=== PATIENT | male | born 1985 | race African-American/Black ===

== ENCOUNTER → 2023-03-02 | Outpatient (CLI) | payer OTHER ==
[~2023-03-02] MED LIST: ACYC400 PO; ALBU90OI INH; ATOM40 PO; ELIQUIS5 M2 PO; MELO7.5 PO
[2023-03-02 13:12] LABS: BASOPHILS ABSOLUTE AUTO 0.01 K/mm3 (0.00-0.23); BASOPHILS PERCENT AUTO 0 % (0-2); EOSINOPHILS ABSOLUTE AUTO 0.05 K/mm3 (0.00-0.68); EOSINOPHILS PERCENT AUTO 1 % (0-6); Hemoglobin 11.1 g/dL (13.5-17.5); IMMATURE GRAN ABSOLUTE AUTO 0.02 K/mm3 (0.00-0.10); IMMATURE GRAN PERCENT AUTO 0 % (0-1); LYMPHOCYTES ABSOLUTE AUTO 1.37 K/mm3 (0.84-5.20); LYMPHOCYTES PERCENT AUTO 25 % (21-46); MONOCYTES ABSOLUTE AUTO 0.27 K/mm3 (0.16-1.47); MONOCYTES PERCENT AUTO 5 % (4-13); Mean Corpuscular HGB 23.2 pg (26.0-34.0); Mean Corpuscular HGB Conc 31.7 g/dL (31.5-36.5); Mean Corpuscular Volume 73 fL (80-100); NEUTROPHILS ABSOLUTE AUTO 3.84 K/mm3 (1.96-9.15); NEUTROPHILS PERCENT AUTO 69 % (41-73); Platelet Count 158 K/mm3 (150-400); RDW Coefficient Variation 18.6 % (11.7-14.2); RDW Standard Deviation 45.8 fL (35.1-46.3); Red Blood Cell Count 4.79 M/mm3 (4.30-5.90); White Blood Cell Count 5.56 K/mm3 (4.00-11.30)
[2023-03-02 13:35] LABS: Albumin, Blood 2.9 g/dL (3.4-5.0); Albumin/Globulin Ratio 0.5 (0.8-1.8); Bilirubin, Total 0.5 mg/dL (0.1-1.0); Bun/Creatinine Ratio 14.1 (12.0-20.0); Calcium, Blood 8.4 mg/dL (8.5-10.1); Creatinine, Blood 0.85 mg/dL (0.60-1.20); Globulin, Blood 5.9 g/dL (2.2-4.0); Potassium, Blood 3.9 mmol/L (3.5-5.5); Total Protein, Blood 8.8 g/dL (6.4-8.2)
== END | disposition home or self-care (01) ==
LOC: LAB 12:15 → LAB SHORT 12:15
PROVIDERS: Physician Assistant
DX: R55 Syncope and collapse (principal); R74.01 Elevation of levels of liver transaminase levels
CPT/HCPCS: 80053; 83690; 85025; 85379

== ENCOUNTER 2023-03-07 09:26 | Emergency (ER) | payer OTHER ==
[~2023-03-07] VITALS: Ht 182.9 cm; Wt 112.0 kg
[2023-03-07 11:07] LABS: Hematocrit 33.4 % (37.0-53.0); Hemoglobin 10.7 g/dL (13.5-17.5); Mean Corpuscular HGB 23.3 pg (26.0-34.0); Mean Corpuscular Volume 73 fL (80-100); Platelet Count 151 K/mm3 (150-400); RDW Coefficient Variation 18.9 % (11.7-14.2); RDW Standard Deviation 44.7 fL (35.1-46.3); White Blood Cell Count 4.31 K/mm3 (4.00-11.30)
[2023-03-07 11:47] LABS: BAND PERCENT MAN 1 % (0-8); BASOPHILS PERCENT MAN 0 % (0-2); EOSINOPHILS ABSOLUTE MAN 0.04 K/mm3 (0.00-0.68); EOSINOPHILS PERCENT MAN 1 % (0-6); LYMPHOCYTES % ATYPICAL MANUAL 1 % (0-0); LYMPHOCYTES ABSOLUTE MAN 1.07 K/mm3 (0.84-5.20); LYMPHOCYTES PERCENT MAN 24 % (21-46); MONOCYTES ABSOLUTE MAN 0.12 K/mm3 (0.16-1.47); MONOCYTES PERCENT MAN 3 % (4-13); NEUTROPHILS ABSOLUTE MAN 3.06 K/mm3 (1.96-9.15); SEG NEUTROPHILS PERCENT MAN 70 % (41-73); TOTAL CELLS COUNTED 100
[2023-03-07 14:18] LABS: Magnesium, Blood 2.1 mg/dL (1.6-2.4)
[2023-03-07 14:19] LABS: Albumin, Blood 2.6 g/dL (3.4-5.0); Albumin/Globulin Ratio 0.4 (0.8-1.8); Bilirubin, Total 0.4 mg/dL (0.1-1.0); Bun/Creatinine Ratio 16.5 (12.0-20.0); Calcium, Blood 8.2 mg/dL (8.5-10.1); Creatinine, Blood 0.73 mg/dL (0.60-1.20); Globulin, Blood 5.9 g/dL (2.2-4.0); Potassium, Blood 5.1 mmol/L (3.5-5.5); Total Protein, Blood 8.5 g/dL (6.4-8.2)
[2023-03-07] MEDS ORDERED: MELO7.5 PO (14:48)
[2023-03-07] MEDS ORDERED: ACYC400 PO (14:49)
[2023-03-07] MEDS ORDERED: ATOM40 PO (14:49)
[2023-03-07] MEDS ORDERED: ELIQUIS5 M2 PO ×2 (14:49→18:30)
[2023-03-07] MEDS ORDERED: ALBU90OI INH (14:50)
[2023-03-07 17:51] VITALS: BP 140/65
== END 2023-03-07 18:30 | disposition home or self-care (01) ==
LOC: ER 09:26
PROVIDERS: Physician Assistant
DX: R55 Syncope and collapse (principal); D68.9 Coagulation defect, unspecified; R59.0 Localized enlarged lymph nodes; R63.4 Abnormal weight loss; S80.01XA Contusion of right knee, initial encounter; R10.9 Unspecified abdominal pain; E88.09 Other disorders of plasma-protein metabolism, not elsewhere classified; Z86.718 Personal history of other venous thrombosis and embolism; Z79.01 Long term (current) use of anticoagulants; F17.210 Nicotine dependence, cigarettes, uncomplicated; Z79.899 Other long term (current) drug therapy; W18.39XA Other fall on same level, initial encounter
CPT/HCPCS: 71260; 73562-LT; 74177; 80053; 83735; 85025; 93005; 93010; 96360; 96361; 99285-25; A9270; J7030; Q9967

== ENCOUNTER 2023-04-11 10:13 | Inpatient (IN) | payer OTHER ==
[~2023-04-11] VITALS: Ht 185.4 cm; Wt 114.1 kg
[2023-04-11 11:18] LABS: BASOPHILS ABSOLUTE AUTO 0.01 K/mm3 (0.00-0.23); BASOPHILS PERCENT AUTO 0 % (0-2); EOSINOPHILS ABSOLUTE AUTO 0.04 K/mm3 (0.00-0.68); EOSINOPHILS PERCENT AUTO 1 % (0-6); Hematocrit 23.6 % (37.0-53.0); Hemoglobin 7.7 g/dL (13.5-17.5); Mean Corpuscular HGB 23.2 pg (26.0-34.0); Mean Corpuscular HGB Conc 32.6 g/dL (31.5-36.5); Mean Corpuscular Volume 71 fL (80-100); Platelet Count 198 K/mm3 (150-400); RDW Coefficient Variation 19.8 % (11.7-14.2); RDW Standard Deviation 47.5 fL (35.1-46.3); Red Blood Cell Count 3.32 M/mm3 (4.30-5.90); White Blood Cell Count 5.23 K/mm3 (4.00-11.30)
[2023-04-11 11:28] LABS: IMMATURE GRAN ABSOLUTE AUTO 0.02 K/mm3 (0.00-0.10); IMMATURE GRAN PERCENT AUTO 0 % (0-1); LYMPHOCYTES ABSOLUTE AUTO 1.18 K/mm3 (0.84-5.20); LYMPHOCYTES PERCENT AUTO 23 % (21-46); MONOCYTES ABSOLUTE AUTO 0.38 K/mm3 (0.16-1.47); MONOCYTES PERCENT AUTO 7 % (4-13); NEUTROPHILS PERCENT AUTO 69 % (41-73)
[2023-04-11 11:34] LABS: Albumin, Blood 2.1 g/dL (3.4-5.0); Albumin/Globulin Ratio 0.4 (0.8-1.8); Bilirubin, Total 0.2 mg/dL (0.1-1.0); Bun/Creatinine Ratio 23.4 (12.0-20.0); Creatinine, Blood 0.77 mg/dL (0.60-1.20); Globulin, Blood 5.4 g/dL (2.2-4.0); Potassium, Blood 3.9 mmol/L (3.5-5.5); Total Protein, Blood 7.5 g/dL (6.4-8.2)
[2023-04-11 18:57] VITALS: BP 140/98
[2023-04-11 20:28] VITALS: BP 137/97
[2023-04-11 23:47] VITALS: BP 148/98
[2023-04-12 03:30] VITALS: BP 142/86
[2023-04-12 04:45] LABS: Hematocrit 22.9 % (37.0-53.0); Hemoglobin 7.3 g/dL (13.5-17.5); Mean Corpuscular HGB 23.1 pg (26.0-34.0); Mean Corpuscular HGB Conc 31.9 g/dL (31.5-36.5); Mean Corpuscular Volume 73 fL (80-100); Platelet Count 169 K/mm3 (150-400); RDW Coefficient Variation 19.4 % (11.7-14.2); RDW Standard Deviation 48.1 fL (35.1-46.3); RETICULOCYTE ABSOLUTE 0.0123 M/mm3 (0.0200-0.1100); RETICULOCYTE COUNT PERCENT 0.39 % (0.50-2.50); Red Blood Cell Count 3.16 M/mm3 (4.30-5.90); White Blood Cell Count 4.41 K/mm3 (4.00-11.30)
[2023-04-12 05:13] LABS: BASOPHILS PERCENT MAN 0 % (0-2); EOSINOPHILS ABSOLUTE MAN 0.08 K/mm3 (0.00-0.68); EOSINOPHILS PERCENT MAN 2 % (0-6); LYMPHOCYTES % ATYPICAL MANUAL 1 % (0-0); LYMPHOCYTES ABSOLUTE MAN 1.23 K/mm3 (0.84-5.20); LYMPHOCYTES PERCENT MAN 27 % (21-46); MONOCYTES ABSOLUTE MAN 0.22 K/mm3 (0.16-1.47); MONOCYTES PERCENT MAN 5 % (4-13); NEUTROPHILS ABSOLUTE MAN 2.86 K/mm3 (1.96-9.15); SEG NEUTROPHILS PERCENT MAN 65 % (41-73); TOTAL CELLS COUNTED 100
[2023-04-12 05:31] LABS: Albumin, Blood 1.8 g/dL (3.4-5.0); Albumin/Globulin Ratio 0.4 (0.8-1.8); Bilirubin, Total 0.2 mg/dL (0.1-1.0); Bun/Creatinine Ratio 21.8 (12.0-20.0); Calcium, Blood 7.7 mg/dL (8.5-10.1); Creatinine, Blood 0.69 mg/dL (0.60-1.20); Globulin, Blood 4.8 g/dL (2.2-4.0); Potassium, Blood 3.8 mmol/L (3.5-5.5); Thyroid Stimulating Hormone 1.39 uIU/mL (0.360-4.800); Total Protein, Blood 6.6 g/dL (6.4-8.2)
--- NOTE | 2023-04-12 06:26 | NUR ---
SHIFT SUMMARY NO ACUTE CHANGES DURING NOC. SLEPT INTERMITTENTLY. REPOSITIONS SELF IN BED, BUT DOES NEED OCCASIONAL ENCOURAGEMENT/REMINDER TO MOVE. VSS. MONITOR SHOWS NSR, RATE 80s-90s. RA SATS STABLE. RESPIRATIONS EVEN AND UNLABORED. MEDICATED WITH DILAUDID 1MG IV X 3 DOSES FOR C/O RIGHT HIP PAIN. COCCYX AND LEFT ANKLE WOUNDS NOTED- PICTURES IN CHART. WOUND CARE CONSULT ORDERED. LR INFUSING AT 200MLS/HR PER ORDER.
[2023-04-12 08:01] VITALS: BP 144/91
[2023-04-12 11:09] LABS: Source, Urine Foley catheter
[2023-04-12 11:38] LABS: Appearance, Urine Clear (Clear); Bilirubin, Urine Neg (Neg); Blood, Urine Neg (Neg); Color, Urine Yellow (P-Yellow); Glucose Qualitative, Urine Neg (Neg); Ketones, Urine Neg (Neg); Leukocyte Esterase, Urine Neg (Neg); Nitrite, Urine Neg (Neg); Protein, Urine Neg (Neg); Urobilinogen, Urine NORM (Normal)
--- NOTE | 2023-04-12 11:59 | NUR ---
WOUND CARE PT WITH LARGE NECROTIC UNSTAGEABLE PI TO COCCYX. DR MILLER PERFORMED BEDSIDE DEBRIDEMENT TODAY. WOUND DEBRIDED TO THE LEVEL THAT PT PAIN ALLOWED. WOUND BED STILL NECROTIC AND UNSTAGEABLE. DAKINS SOAKED GAUZE WET TO DRY DRESSING BID FOR THREE DAYS ORDERED TO REDUCE BIOBURDEN AND MECHANICAL DEBRIDEMENT OF WOUND BED. AIR MATRESS AND DIETARY CONSULT ORDERED. L LATERAL MALLEOLUS WOUND CLEANSED WITH DERMAL WOUND HYDROGEL TO WOUND BED AND COVERED WITH BORDERED FOAM. NEW PHOTOS AND ASSESSMENTS IN HARD CHART. PT TOLERATED CARE WELL
[2023-04-12 12:14] VITALS: BP 112/88
[2023-04-12 16:22] VITALS: BP 145/106
--- NOTE | 2023-04-12 17:29 | NUR ---
SHIFT SUMMARY: PT HAS BEEN A&Ox4, GENERALLY WEAK, PAINFUL TO R HIP AND BLE. PT DENIES SOB, O2 SATS MAINTAINED >93%, INCENTIVE SPIROMETER PROVIDED W/EDCUATION. PT DENIES CHEST PAIN, SR ON MONITOR W/RATE 80s-90s, ZIO PATCH TO L CHEST WHICH PT STATES HE HAS HAD FOR A "FEW WEEKS" B/C OF "SYNCOPAL EPISODE". ABD IS SOFT, NONTENDER, BT PRESENT TO AUSCULTATION. PT TOLERATING REGULAR DIET. PER REPORT, PT HAVING LOOSE STOOLS. NO LOOSE STOOLS THIS SHIFT. THIS AM PT WAS C/O URGENCY TO VOID BUT UNABLE TO DO SO EVEN THOUGH HE HAD APPROX 1000ML OUTPUT VIA URINAL. BLADDER SCAN COMPLETED AND INDWELLING CATHETER PLACED PER PROVIDER. PT TOLERATED WELL. WOUND CONSULTATION AND CARE COMPLETED THIS SHIFT, SEE WC RN NURSE NOTE, SPECIALITY AIR BED ORDERED. PT HAS BEEN MEDICATED PER EMAR FOR C/O R HIP/BLE PAIN. LR INFUSING PER ORDERS. AT THIS TIME, PT RESTING QUIETLY IN ROOM W/CALL LIGHT IN REACH. WILL CONTINUE TO MONITOR AND TREAT ACCORDINGLY UNTIL CHANGE OF SHIFT.
[2023-04-12 20:00] VITALS: BP 129/95
[2023-04-13] VITALS: BP 132/89
[2023-04-13 03:47] LABS: BASOPHILS PERCENT AUTO 0 % (0-2); EOSINOPHILS PERCENT AUTO 0 % (0-6); Hematocrit 25.7 % (37.0-53.0); Hemoglobin 8.4 g/dL (13.5-17.5); Mean Corpuscular HGB 23.2 pg (26.0-34.0); Mean Corpuscular HGB Conc 32.7 g/dL (31.5-36.5); Mean Corpuscular Volume 71 fL (80-100); Platelet Count 198 K/mm3 (150-400); RDW Coefficient Variation 19.4 % (11.7-14.2); RDW Standard Deviation 46.5 fL (35.1-46.3); Red Blood Cell Count 3.62 M/mm3 (4.30-5.90); White Blood Cell Count 4.71 K/mm3 (4.00-11.30)
[2023-04-13 03:57] LABS: IMMATURE GRAN ABSOLUTE AUTO 0.02 K/mm3 (0.00-0.10); IMMATURE GRAN PERCENT AUTO 0 % (0-1); LYMPHOCYTES ABSOLUTE AUTO 0.85 K/mm3 (0.84-5.20); LYMPHOCYTES PERCENT AUTO 18 % (21-46); MONOCYTES ABSOLUTE AUTO 0.08 K/mm3 (0.16-1.47); MONOCYTES PERCENT AUTO 2 % (4-13); NEUTROPHILS ABSOLUTE AUTO 3.76 K/mm3 (1.96-9.15); NEUTROPHILS PERCENT AUTO 80 % (41-73)
[2023-04-13 04:00] VITALS: BP 150/88
[2023-04-13 04:10] LABS: Albumin, Blood 1.8 g/dL (3.4-5.0); Albumin/Globulin Ratio 0.3 (0.8-1.8); Bilirubin, Total 0.2 mg/dL (0.1-1.0); Bun/Creatinine Ratio 21.7 (12.0-20.0); Calcium, Blood 8.1 mg/dL (8.5-10.1); Creatinine, Blood 0.83 mg/dL (0.60-1.20); Globulin, Blood 5.3 g/dL (2.2-4.0); Potassium, Blood 4.2 mmol/L (3.5-5.5); Total Protein, Blood 7.1 g/dL (6.4-8.2)
--- NOTE | 2023-04-13 05:54 | NUR ---
SHIFT SUMMARY THIS RN ASSUMED CARE OF PT AT 1900. PT A&O X4, PT IS COOPERATIVE AND PLEASANT ALTHOUGH AFFECT IS FLAT. PT SPEECH AND ANSWERS ARE SLOWED/DELAYED BUT PT ANSWERS ALL QUESTIONS APPROPRIATELY. PT DENIES CP/PRESSURE, SOB, DIZZINESS. PT DOES REPORT GENREALIZED WEAKNESS AND FATIGUE. PT CONTINUES TO REPORT PAIN 3-6/10 IN "HIPS". MEDICATION PER EMAR, WELL REPOSTIONING AND UNINTERRUPTED REST. PT ABLE TO REPOSITION INDEPENDENTLY IN THE BED, OCCASSIONAL NEED FOR ASSISTANCE. SPECIALTY BED IN PLACE. VSS T/O SHIFT, PT AFEBRILE. COCCYX DRESSING CHANGED THIS SHIFT PER ORDERS. L HEAL DRESSING C/D/I. NO ACUTE EVENTS OVERNIGHT. CHANEL CATHETER IT PLACE AND DRAINING TO GRAVITY; 1450 MLS OUT NO BM THIS SHIFT. LR INFUSING PER EMAR. CALL LIGHT IN REACH AND PT ABLE TO MAKE NEEDS KNOWN. PT NPO AT 2000 UNTIL AM LABS COMPLETE. WILL UPDATE ONCOMING RN.
[2023-04-13 07:11] VITALS: BP 150/97
--- NOTE | 2023-04-13 10:15 | NUR ---
PT GIVEN BED BATH, ATTENDS CHANGED AND COCCYX WOUND DRESSING CHANGED PER ORDERS.
--- NOTE | 2023-04-13 14:16 | NUR ---
TRANSFER OF CARE REPORT GIVEN TO MEDICAL FLOOR RN AT APPROX 1415. PT VSS. NO ACUTE CHANGES. PT DENIES CHEST PAIN/PRESSURE. CATHETER REMOVED PER EMAR PT ABLE TO VOID AFTER REMOVAL OF CATHETER. PT TRANSFERED TO MEDICAL FLOOR ACCOMPANIED BY MANE PAPPAS VIA WHEELCHAIR.
[2023-04-13 16:07] VITALS: BP 135/84
--- NOTE | 2023-04-13 17:07 | NUR ---
Received pt from U @ 1540 via wc awake and alert x3. Oriented to room and call light. Mom at bedside. Dressing to sacrum CDI. Pt did ambulate with increased weakness noted. Pain and safety maintained, will continue to monitor.
[2023-04-13 19:45] VITALS: BP 143/88
[2023-04-14 05:36] VITALS: BP 155/97
[2023-04-14 05:51] LABS: BASOPHILS PERCENT AUTO 0 % (0-2); EOSINOPHILS PERCENT AUTO 0 % (0-6); Hematocrit 28.6 % (37.0-53.0); Hemoglobin 9.3 g/dL (13.5-17.5); IMMATURE GRAN ABSOLUTE AUTO 0.05 K/mm3 (0.00-0.10); IMMATURE GRAN PERCENT AUTO 1 % (0-1); LYMPHOCYTES ABSOLUTE AUTO 1.41 K/mm3 (0.84-5.20); LYMPHOCYTES PERCENT AUTO 13 % (21-46); MONOCYTES ABSOLUTE AUTO 0.36 K/mm3 (0.16-1.47); MONOCYTES PERCENT AUTO 3 % (4-13); Mean Corpuscular HGB 23.1 pg (26.0-34.0); Mean Corpuscular HGB Conc 32.5 g/dL (31.5-36.5); Mean Corpuscular Volume 71 fL (80-100); NEUTROPHILS ABSOLUTE AUTO 8.72 K/mm3 (1.96-9.15); NEUTROPHILS PERCENT AUTO 83 % (41-73); Platelet Count 251 K/mm3 (150-400); RDW Coefficient Variation 19.2 % (11.7-14.2); RDW Standard Deviation 45.5 fL (35.1-46.3); Red Blood Cell Count 4.02 M/mm3 (4.30-5.90); White Blood Cell Count 10.54 K/mm3 (4.00-11.30)
[2023-04-14 06:29] LABS: Bun/Creatinine Ratio 32.3 (12.0-20.0); Calcium, Blood 8.5 mg/dL (8.5-10.1); Creatinine, Blood 0.87 mg/dL (0.60-1.20); Potassium, Blood 4.2 mmol/L (3.5-5.5)
--- NOTE | 2023-04-14 07:45 | NUR ---
SHIFT SUMMERY. PT RESTING IN BED, PT CAN STAND TO VOID BUT IS WEAK. PT MEDICATED FOR PAIN X 2. PTS DRG CHANGED TO BUTTOCKS. PT HAD A SNACK BEFORE BED TIME. PT LIKES TO HAVE ALL 4 SIDE RAILS UP AND PULLS THEM UP HIMSELF. PT ALSO HAD BED ALL THE WAY UP, REQUESTED FOR SAFTY PT NOT DO THAT. PT VU. CALL LIGHT IN REACH.
[2023-04-14 08:08] VITALS: BP 131/84
[2023-04-14 09:11] LABS: ERYTHROPOIETIN 17 mU/mL (4-27)
[2023-04-14 11:42] LABS: HAPTOGLOBIN 150 mg/dL (30-200)
[2023-04-14 15:26] LABS: IMMUNOGLOBULIN A 277 mg/dL (68-408); IMMUNOGLOBULIN G 2369 mg/dL (768-1632); IMMUNOGLOBULIN M 100 mg/dL (35-263)
[2023-04-14 16:13] LABS: HIV 1,2 COMBO ANTIGEN/ANTIBODY Negative (Negative)
[2023-04-14 16:31] VITALS: BP 143/87
--- NOTE | 2023-04-14 17:59 | NUR ---
SHIFT SUMMARY DRESSINGS CHANGED THIS SHIFT AND CONT TO BE C/D/I. NO ACUTE CHANGES THIS SHIFT. CALL LIGHT WITHIN REACH AND PT ABLE TO MAKE NEEDS KNOWN.
[2023-04-14 19:44] VITALS: BP 146/88
[2023-04-14 22:34] LABS: ANTI-NUCLEAR AB ANA,IGG ELISA Detected (None Detected)
[2023-04-15 04:19] VITALS: BP 142/97
--- NOTE | 2023-04-15 05:06 | NUR ---
REPORT RECEIVED VERIFIED A/O X 3 VERY PLEASENT BUT A LITTLE DIFFICULT TO FOLLOW WHEN PT SPEAKING, POOR HISTORIAN AND DIESNT SEEM TO KNOW WHAT IS GOING ON WITH HIS OWN LIFE. PT IS COOPERTIVE WITH CARE AND IS ABLE TO MAKE NEEDS KNOW, VERY THANKFUL YET HAS A FLAT AFFECT. WHOLE BODY PAIN MEDICATED WITH ORDERED MEDS SEE MAY. WILL CONT TO MONITOR
[2023-04-15 05:31] LABS: Hematocrit 30.4 % (37.0-53.0); Hemoglobin 9.7 g/dL (13.5-17.5); Mean Corpuscular HGB Conc 31.9 g/dL (31.5-36.5); Mean Corpuscular Volume 72 fL (80-100); Platelet Count 209 K/mm3 (150-400); Red Blood Cell Count 4.22 M/mm3 (4.30-5.90); White Blood Cell Count 9.55 K/mm3 (4.00-11.30)
[2023-04-15 05:54] LABS: Bun/Creatinine Ratio 29.3 (12.0-20.0); Calcium, Blood 8.2 mg/dL (8.5-10.1); Creatinine, Blood 0.85 mg/dL (0.60-1.20); Potassium, Blood 3.3 mmol/L (3.5-5.5)
[2023-04-15 06:48] LABS: BASOPHILS PERCENT MAN 0 % (0-2); EOSINOPHILS PERCENT MAN 0 % (0-6); LYMPHOCYTES % ATYPICAL MANUAL 2 % (0-0); LYMPHOCYTES ABSOLUTE MAN 1.91 K/mm3 (0.84-5.20); LYMPHOCYTES PERCENT MAN 18 % (21-46); MONOCYTES ABSOLUTE MAN 0.38 K/mm3 (0.16-1.47); MONOCYTES PERCENT MAN 4 % (4-13); NEUTROPHILS ABSOLUTE MAN 7.16 K/mm3 (1.96-9.15); PLASMA CELL ABSOLUTE MAN 0.09 K/mm3 (0.00-0.00); PLASMA CELLS PERCENT MAN 1 % (0-0); SEG NEUTROPHILS PERCENT MAN 75 % (41-73); TOTAL CELLS COUNTED 100
[2023-04-15 07:47] VITALS: BP 128/84
[2023-04-15 16:05] VITALS: BP 142/96
--- NOTE | 2023-04-15 16:57 | NUR ---
SHIFT SUMMARY PT AOX4, 1 ASSIST WITH THE FWW. DRESSINGS CHANGED TO THE INNER GLUTEAL FOLD ALONG WITH HIS L HEEL THIS SHIFT. PT TOLERATED IT WELL. MEDICATED FOR PAIN PER THE EMAR. NO OTHER COMPLAINTS FROM THE PT. HE USES THE URINAL INDEPENDENTLY. HIS MOTHER HAS BEEN AT THE BS ALL THIS SHIFT. HE CALLS WELL AND MAKES HIS NEEDS KNOWN. AWAITING SNIF PLACEMENT. CALL LIGHT WITHIN REACH, BED IN THE LOWEST POSITION. WILL REPORT TO ONCOMING NURSE.
[2023-04-15 19:32] VITALS: BP 163/99
--- NOTE | 2023-04-15 23:24 | NUR ---
PT A&OX4 HERE FOR SICKLE CELL CRISIS PT RESPONDS APPROPERIATELY WITH DELAYED VERBAL RESPONSES REPORTS APPREHENSION WITH SHARING OPENS UP TO NURSE INTERVIEW AT BEDSIDE. PT HAS LEFT WRIST IV PATENT DRESSING IS INTACT DENIES PAIN OR TENDERNESS WRAPPED IN KERLEX. PT HAS WOUND TO GLUTEAL FOLD WITH MEPLEX REFUSED ASSESSMENT R/T PAIN LEVELS MEDICATED PER EMAR 2ND WOUND LEFT ANKLE MEPLEX C/D/I. BILAT EDEMA 1-2+ REPORTS BASELINE. PT IS INDEPENDENT IN ROOM USES FWW AND VOIDS TO URINAL AT BEDSIDE. CALL WITHIN REACH BED LOWERED WILL CONTINUE TO MONITOR.
[2023-04-16 04:24] VITALS: BP 137/86
[2023-04-16 05:39] LABS: BASOPHILS ABSOLUTE AUTO 0.02 K/mm3 (0.00-0.23); BASOPHILS PERCENT AUTO 0 % (0-2); EOSINOPHILS PERCENT AUTO 0 % (0-6); Hematocrit 27.5 % (37.0-53.0); Hemoglobin 8.8 g/dL (13.5-17.5); Mean Corpuscular HGB 23.2 pg (26.0-34.0); Mean Corpuscular Volume 73 fL (80-100); Platelet Count 219 K/mm3 (150-400); RDW Coefficient Variation 19.2 % (11.7-14.2); RDW Standard Deviation 46.7 fL (35.1-46.3); Red Blood Cell Count 3.79 M/mm3 (4.30-5.90); White Blood Cell Count 6.49 K/mm3 (4.00-11.30)
[2023-04-16 05:55] LABS: Bun/Creatinine Ratio 36.8 (12.0-20.0); Calcium, Blood 8.4 mg/dL (8.5-10.1); Creatinine, Blood 0.76 mg/dL (0.60-1.20); Potassium, Blood 3.7 mmol/L (3.5-5.5)
[2023-04-16 05:58] LABS: IMMATURE GRAN ABSOLUTE AUTO 0.04 K/mm3 (0.00-0.10); IMMATURE GRAN PERCENT AUTO 1 % (0-1); LYMPHOCYTES ABSOLUTE AUTO 1.97 K/mm3 (0.84-5.20); LYMPHOCYTES PERCENT AUTO 30 % (21-46); MONOCYTES ABSOLUTE AUTO 0.51 K/mm3 (0.16-1.47); MONOCYTES PERCENT AUTO 8 % (4-13); NEUTROPHILS ABSOLUTE AUTO 3.95 K/mm3 (1.96-9.15); NEUTROPHILS PERCENT AUTO 61 % (41-73)
[2023-04-16 06:13] LABS: ANA PATTERN Homogeneous; ANA TITER >1:2560; ANTINUCLEAR AB (ANA),HEP-2,IGG Detected (<1:80)
[2023-04-16 06:45] LABS: ALBUMIN 2.28 g/dL (3.75-5.01); ALPHA 1 GLOBULIN 0.33 g/dL (0.19-0.46); ALPHA 2 GLOBULIN 0.52 g/dL (0.48-1.05); BETA GLOBULIN 0.69 g/dL (0.48-1.10); GAMMA 2.29 g/dL (0.62-1.51); IMMUNOFIXATION REFLEX Not Done; TOTAL PROTEIN,SERUM 6.1 g/dL (6.3-8.2)
--- NOTE | 2023-04-16 06:45 | NUR ---
ASSUMED CARE OF PT AT 0400. NO CHANGES NOTED. AM MEDS AND PRN DILAUDID RECIEVED PER EMAR. STERLING AND REPORT TO DAY RN.
[2023-04-16 07:32] VITALS: BP 131/80
--- NOTE | 2023-04-16 10:07 | NUR ---
Gave consent for this student to provide and be involved in his care.
[2023-04-16 12:37] LABS: Influenza A, PCR NEGATIVE (NEGATIVE); Influenza B, PCR NEGATIVE (NEGATIVE); Resp Syncytial Virus, PCR NEGATIVE (NEGATIVE); SARS-Cov-2 (COVID-19) PCR, MMC NEGATIVE (NEGATIVE)
[2023-04-16 14:31] LABS: SMITH/RNP (ENA) AB, IGG 128 Units (0-19)
[2023-04-16 15:33] VITALS: BP 142/76
--- NOTE | 2023-04-16 17:27 | NUR ---
NO ACUTE CHANGES AT THIS TIME. PT CAN MAKE NEEDS KNOWN AND IS COOPERATIVE OF CARE. PT ABLE TO AMBULATE WELL IS HAS BEEN A STANDBY ASSIST TODAY. TREATED FOR PAIN PER EMAR. NO DISTRESS NOTED AND CALL LIGHT WITHIN REACH. WILL CONTINUE TO MONITOR.
[2023-04-16 17:45] LABS: JO-1 HISTIDYL-TRNA SYNTHET,IGG 12 AU/mL (0-40); SCLERODERMA (SCL-70) AB,IGG 13 AU/mL (0-40); SMITH (ENA) ANTIBODY, IGG 86 AU/mL (0-40); SSA-52 (RO52) (ENA) AB, IGG 7 AU/mL (0-40); SSA-60 (RO60) (ENA) AB, IGG 89 AU/mL (0-40); SSB (LA) (ENA) ANTIBODY, IGG 7 AU/mL (0-40)
[2023-04-16 19:53] VITALS: BP 164/88
[2023-04-16 23:30] LABS: DOUBLE-STRANDED DNA IGG ELISA 289 IU (0-24)
--- NOTE | 2023-04-17 03:24 | NUR ---
PT A&OX4 INDEPENDENT IN ROOM, PT HAS GLUTEAL FOLD DRESSING C/D/I AND L ANKLE DRESSING FOR WOUND C/D/I. IV ACCESS WAS DCD, PT STATES WAITING ON AUTHORIZATIN FOR TRANSFER TO SNF FOR REHAB POSSIBLY TODAY, PT HAS BLE EDEMA PT STATES BASELINE. PT PAIN LEVELS ARE ACCEPTABLE 3/10W GENERALIZED TO EXTREMEITIES. PT LS CLEAR T/O APICAL HR 92 BS IN ALL QUADS, PT REPORTS BM EARLIER IN DAY. PT CALLS APPROPERIATELY MAKES NEEDS KNOWN, BED LOWERED WILL CONTINUE TO MONITOR.
--- NOTE | 2023-04-17 06:04 | NUR ---
NO ACUTE CHANGES SINCE KIM BALDERAS LEFT LAST NOC, AT APPX 0330. WILL CONTINUE TO MONITOR UNTIL AM SHIFT CHANGE.
[2023-04-17 09:24] VITALS: BP 136/87
[2023-04-17] MEDS ORDERED: JUVEN PACKET1 EAC3 PO (14:17)
[2023-04-17] MEDS ORDERED: ACET325 PO (14:17)
[2023-04-17] MEDS ORDERED: CEPH500 PO (14:18)
[2023-04-17] MEDS ORDERED: DOCU100 PO (14:18)
[2023-04-17] MEDS ORDERED: LACT PO (14:19)
[2023-04-17] MEDS ORDERED: FURO40 PO (14:19)
[2023-04-17] MEDS ORDERED: PANT40 PO (14:20)
[2023-04-17] MEDS ORDERED: PRED20 PO (14:40)
[2023-04-17] MEDS ORDERED: Promod946 ML PO (14:41)
[2023-04-17] MEDS ORDERED: TRAM50 PO (14:41)
--- NOTE | 2023-04-17 16:23 | NUR ---
DISCHARGE Patient ready for discharge, going to SNF for therapy. GIANCARLO RN changed wound dressing this shift. Patient left at 1500 to SNF. [facility] called for report.
[2023-04-18 06:10] LABS: FACTIN SMOOTH MUSCLE,IGG ELISA 27 Units (0-19)
[2023-04-18 06:10] LABS: MITOCHONDRIAL (M2) AB,IGG 28.1 Units (0.0-24.9)
[2023-04-18 08:23] LABS: SMITH/RNP (ENA) AB, IGG 131 Units (0-19)
[2023-04-18 14:39] LABS: DOUBLE-STRANDED DNA IGG ELISA >300 IU (0-24)
[2023-04-18 16:48] LABS: JO-1 HISTIDYL-TRNA SYNTHET,IGG 14 AU/mL (0-40); SSA-52 (RO52) (ENA) AB, IGG 6 AU/mL (0-40); SSA-60 (RO60) (ENA) AB, IGG 84 AU/mL (0-40); SSB (LA) (ENA) ANTIBODY, IGG 7 AU/mL (0-40)
[2023-04-18 22:54] LABS: DOUBLESTRAND DNA DSDNA IGG IFA >1:2560 (<1:10)
[2023-04-19 10:34] LABS: HEPATITIS A ANTIBODY, IGM Negative (Negative); HEPATITIS B CORE ANTIBODY, IGM Negative (Negative); HEPATITIS B SURFACE ANTIGEN Negative (Negative); HEPATITIS C AB CIA INTERP Negative (Negative); HEPATITIS C ANTIBODY CIA INDEX 0.24 IV
[2023-04-19 18:53] LABS: SMOOTH MUSCLE AB,IGG TITER <1:20 (<1:20)
[2023-04-20 10:05] LABS: QUANTIFERON MITOGEN MINUS NIL 1.32 IU/mL; QUANTIFERON NIL 0.02 IU/mL; QUANTIFERON PLUS TB2 MINUS NIL 0.01 IU/mL (0.00-0.34); QUANTIFERON TB GOLD PLUS Negative (Negative)
[2023-04-21 03:47] LABS: DOUBLESTRAND DNA DSDNA IGG IFA >1:2560 (<1:10)
[2023-04-22 01:01] LABS: CRYOGLOBULIN QUALITATIVE SCRN NEG 72Hour (NEG 72Hour)
== END 2023-04-17 14:25 | DRG 802 ==
LOC: ER 10:13 → PCU 16:55 → MEDS 16:55 → PCU 18:52 → MEDS 04-13 15:36 → ENPENDDIS 04-17 11:45 → MEDS 04-17 14:25
PROVIDERS: Family Medicine; Internal Medicine; Internal Medicine Hematology & Oncology; Physician Assistant; ADMIT Internal Medicine
PROC: 0JB70ZZ Excision of Back Subcutaneous Tissue and Fascia, Open Approach (ICD-10-PCS; principal; 2023-04-12)
DX: D59.10 Autoimmune hemolytic anemia, unspecified (principal); L89.153 Pressure ulcer of sacral region, stage 3; L89.523 Pressure ulcer of left ankle, stage 3; I96 Gangrene, not elsewhere classified; I47.10 Supraventricular tachycardia, unspecified; I82.402 Acute embolism and thrombosis of unspecified deep veins of left lower extremity; I82.813 Embolism and thrombosis of superficial veins of lower extremities, bilateral; M32.9 Systemic lupus erythematosus, unspecified; R59.1 Generalized enlarged lymph nodes; G47.30 Sleep apnea, unspecified; F90.9 Attention-deficit hyperactivity disorder, unspecified type; M19.90 Unspecified osteoarthritis, unspecified site; F17.210 Nicotine dependence, cigarettes, uncomplicated; B00.1 Herpesviral vesicular dermatitis; D63.8 Anemia in other chronic diseases classified elsewhere; R29.6 Repeated falls; E87.6 Hypokalemia; R33.9 Retention of urine, unspecified; M54.9 Dorsalgia, unspecified; R10.2 Pelvic and perineal pain; R60.0 Localized edema; Z11.52 Encounter for screening for COVID-19; Z86.711 Personal history of pulmonary embolism; Z86.718 Personal history of other venous thrombosis and embolism; Z79.01 Long term (current) use of anticoagulants; Z79.899 Other long term (current) drug therapy
CPT/HCPCS: 0241U; 36415; 51702; 71046; 71260; 72170; 74177; 80048; 80053; 80074; 80195; 81003; 81256; 82550; 82595; 82607; 82668; 82746; 82784; 83010; 83021; 83516; 83521; 83690; 83880; 84155; 84165; 84443; 85025; 85045; 86015; 86038; 86039; 86157; 86225; 86235; 86256; 86334; 86381; 86480; 86762; 86880; 87389; 94640; 94664; 94760; 94762; 96365; 96375; 97110; 97116; 97162; 97530; 99285-25; A9270; C9113; J0696; J1170; J1940; J2405; J2930; J7030; J7120; J7512; Q9967

== ENCOUNTER 2023-04-25 04:52 | Day surgery (SDC) | payer OTHER ==
[~2023-04-25 04:52] MED LIST changes: +ACET325 PO; +CEPH500 PO; +DOCU100 PO; +FURO40 PO; +JUVEN PACKET1 EAC3 PO; +LACT PO; +PANT40 PO; +PRED20 PO; +Promod946 ML PO; +TRAM50 PO
== END 2023-04-25 23:07 | disposition home or self-care (01) ==
LOC: WOUND 04:52
DX: L89.153 Pressure ulcer of sacral region, stage 3 (principal); L89.150 Pressure ulcer of sacral region, unstageable; L89.523 Pressure ulcer of left ankle, stage 3; I87.312 Chronic venous hypertension (idiopathic) with ulcer of left lower extremity; L97.822 Non-pressure chronic ulcer of other part of left lower leg with fat layer exposed; I87.2 Venous insufficiency (chronic) (peripheral); G47.30 Sleep apnea, unspecified; I10 Essential (primary) hypertension; Z87.891 Personal history of nicotine dependence
CPT/HCPCS: A9270; G0463

== ENCOUNTER 2023-05-01 02:51 | Day surgery (SDC) | payer OTHER | END 2023-05-01 23:23 | disposition home or self-care (01) | LOC: WOUND 02:51 | DX: L89.153 Pressure ulcer of sacral region, stage 3 (principal); L89.303 Pressure ulcer of unspecified buttock, stage 3; I87.312 Chronic venous hypertension (idiopathic) with ulcer of left lower extremity; I87.2 Venous insufficiency (chronic) (peripheral); L97.312 Non-pressure chronic ulcer of right ankle with fat layer exposed; L97.929 Non-pressure chronic ulcer of unspecified part of left lower leg with unspecified severity; I73.9 Peripheral vascular disease, unspecified | CPT/HCPCS: 93922; G0463 ==

== ENCOUNTER 2023-05-08 01:22 | Day surgery (SDC) | payer OTHER | END 2023-05-08 23:40 | disposition home or self-care (01) | LOC: WOUND 01:22 | DX: L97.922 Non-pressure chronic ulcer of unspecified part of left lower leg with fat layer exposed (principal); L89.153 Pressure ulcer of sacral region, stage 3; I87.312 Chronic venous hypertension (idiopathic) with ulcer of left lower extremity; I87.2 Venous insufficiency (chronic) (peripheral); E87.1 Hypo-osmolality and hyponatremia | CPT/HCPCS: G0463 ==

== ENCOUNTER 2023-05-15 00:17 | Day surgery (SDC) | payer OTHER | END 2023-05-15 22:45 | disposition home or self-care (01) | LOC: WOUND 00:17 | DX: I87.312 Chronic venous hypertension (idiopathic) with ulcer of left lower extremity (principal); L89.153 Pressure ulcer of sacral region, stage 3; I87.2 Venous insufficiency (chronic) (peripheral) | CPT/HCPCS: G0463 ==